=== PATIENT | male | born 1995 | race Caucasian/White ===

== ENCOUNTER 2020-11-30 18:24 | Emergency (ER) | payer MEDICAID ==
[~2020-11-30] VITALS: Ht 180.3 cm; Wt 100.0 kg
[2020-11-30] MEDS ORDERED: IBUPROFEN 600MG TABLET PO ONE (19:30)
[2020-11-30] MEDS ORDERED: IBUP-2029 MT (19:34)
[2020-11-30 20:07] VITALS: BP 124/87
== END 2020-11-30 20:08 | disposition home or self-care (01) ==
LOC: ER 18:24
DX: S62.309A Unspecified fracture of unspecified metacarpal bone, initial encounter for closed fracture (principal); W18.30XA Fall on same level, unspecified, initial encounter; Y93.89 Activity, other specified; Y92.89 Other specified places as the place of occurrence of the external cause; Y99.8 Other external cause status
CPT/HCPCS: 29125; 99283; A4565

== ENCOUNTER 2021-04-23 22:45 | Emergency (ER) | payer MEDICAID ==
[~2021-04-23] VITALS: Ht 180.3 cm; Wt 90.0 kg
[~2021-04-23 22:45] MED LIST: IBUP-2029 MT
[2021-04-23 23:48] VITALS: BP 116/78
[2021-04-24] MEDS ORDERED: KETOROLAC 60MG/2ML VIAL IM ONE (01:00)
[2021-04-24] MEDS ORDERED: BACITRACIN ZINC OINT UDPKT TOP ONE (01:00)
== END 2021-04-24 01:43 | disposition left against medical advice (07) ==
LOC: ER 22:45
DX: M79.642 Pain in left hand (principal)